=== PATIENT | male | born 1955 | race Caucasian/White ===

== ENCOUNTER → 2020-11-26 | Outpatient (CLI) | payer MEDICARE ==
--- NOTE | 2020-11-26 08:29 | US ---
EXAMINATION TYPE: US duplex aorta DATE OF EXAM: 11/26/2020 COMPARISON: NONE CLINICAL HISTORY: Z13.6 Encounter for screening for cardiovascular disorders. order states screening, no symptoms EXAM MEASUREMENTS: Abdominal Aorta: Proximal: 2.6 x 2.2cm Mid: 2.0 x 2.0cm Distal: 1.7 x 2.0cm Bifurcation: rt = 1.1cm lt = 1.1cm Atherosclerotic changes distally Grayscale, color Doppler, spectral Doppler imaging performed. IMPRESSION: No evident abdominal aortic aneurysm.
--- NOTE | 2020-11-26 08:31 | US ---
EXAMINATION TYPE: US carotid duplex BILAT DATE OF EXAM: 11/26/2020 COMPARISON: NONE CLINICAL HISTORY: R01.1 Murmur. known murmur, no h/o stroke, no symptoms EXAM MEASUREMENTS: RIGHT: Peak Systolic Velocity (PSV) cm/sec ----- Right CCA: 70.1 ----- Right ICA: 102.6 ----- Right ECA: 128.5 ICA/CCA ratio: 1.5 RIGHT: End Diastole cm/sec ----- Right CCA: 22.9 ----- Right ICA: 36.6 ----- Right ECA: 26.3 LEFT: Peak Systolic Velocity (PSV) cm/sec ----- Left CCA: 80.5 ----- Left ICA: 93.9 ----- Left ECA: 126.4 ICA/CCA ratio: 1.2 LEFT: End Diastole cm/sec ----- Left CCA: 24.7 ----- Left ICA: 42.4 ----- Left ECA: 28.0 VERTEBRALS (direction of flow): Right Vertebral: Antegrade Left Vertebral: Antegrade Rhythm: Normal Heterogeneous plaque seen at left BULB/ICA, with no significant stenosis noted bilaterally. Grayscale, color Doppler, spectral Doppler imaging performed. Waveform analysis does not show signifi cant stenosis of the proximal internal carotid arteries. IMPRESSION: No hemodynamic significant stenosis of the proximal internal carotid arteries by Doppler criteria, an indirect measurement of carotid stenosis Criteria for Assigning % of Stenosis / Diameter reduction (Estimation based on the indirect measurements of the internal carotid artery velocities (ICA PSV). 1. Normal (no stenosis)=ICA PSV < 125 cm/s: ratio < 2.0: ICA EDV<40 cm/s. 2. Less than 50% stenosis=ICA PSV < 125 cm/s: ratio < 2.0: ICA EDV<40 cm/s. 3. 50 to 69% stenosis=ICA PSV of 125 to 230 cm/s: ration 2.0 ? 4.0: ICA EDV 40-100 cm/s. 4. Greater than 70% stenosis to near occlusion= ICA PSV > 230 cm/s: ratio > 4.0: ICA EDV > 100 cm/s. 5. Near occlusion= ICA PSV velocities may be low or undetectable: variable ratio and ICA EDV. 6. Total occlusion=unable to detect flow.
--- NOTE | 2020-11-26 12:00 | ECHOF ---
Referral Reason:R01.1 Murmur Z13.6 encounter for screening..... MEASUREMENTS -------- HEIGHT: 182.9 cm WEIGHT: 131.1 kg BP: RVIDd: 3.1 cm (< 3.3) IVSd: 1.3 cm (0.6 - 1.1) LVIDd: 5.2 cm (3.9 - 5.3) LVPWd: 1.5 cm (0.6 - 1.1) IVSs: 1.7 cm LVIDs: 4.0 cm LVPWs: 1.5 cm LAESV Index (A-L): 26.41 ml/m Ao Diam: 3.2 cm (2.0 - 3.7) AV Cusp: 1.2 cm (1.5 - 2.6) MV EXCURSION: 23.586 mm (> 18.000) MV EF SLOPE: 96 mm/s (70 - 150) EPSS: 0.5 cm AV maxP.46 mmHg AV maxP.46 mmHg AV meanP.54 mmHg FINDINGS -------- Sinus rhythm. This was a technically good study. The left ventricular size is normal. There is mild concentric left ventricular hypertrophy. Overa ll left ventricular systolic function is mild-moderately impaired with, an EF between 40 - 45 %. The right ventricle is normal in size. Normal LA size by volume 22+/-6 ml/m2. The right atrial size is normal. There is moderate aortic stenosis present. Peak/mean gradient across the Aortic Valve is 46.46mmHg / 23.54mmHg. Can't exclude Bicuspid valve vs fused cusp. Mild mitral regurgitation is present. Mild tricuspid regurgitation present. Right ventricular systolic pressure is normal at < 35 mmHg. There is no pulmonic regurgitation present. The aortic root size is normal. There is no pericardial effusion. CONCLUSIONS -------- 1. The left ventricular size is normal. 2. There is mild concentric left ventricular hypertrophy. 3. Overall left ventricular systolic function is mild-moderately impaired with, an EF between 40 - 45 %. 4. The right ventricle is normal in size. 5. Normal LA size by volume 22+/-6 ml/m2. 6. The right atrial size is normal. 7. There is moderate aortic stenosis present. 8. Peak/mean gradient across the Aortic Valve is 46.46mmHg / 23.54mmHg. 9. Can't exclude Bicuspid valve vs fused cusp. 10. Mild mitral regurgitation is present. 11. Mild tricuspid regurgitation present. 12. The aortic root size is normal. 13. There is no pericardial effusion. FUR BLENDER: Iesha Boss RDCS
== END | disposition home or self-care (01) ==
LOC: RADUSWWP 06:54
PROVIDERS: ATTEND Family Medicine
DX: Z13.6 Encounter for screening for cardiovascular disorders (principal); I08.1 Rheumatic disorders of both mitral and tricuspid valves; R01.1 Cardiac murmur, unspecified
CPT/HCPCS: 93306; 93880; 93979

== ENCOUNTER 2020-12-06 07:55 | Day surgery (SDC) | payer MEDICARE ==
[2020-12-03 09:25] VITALS: BMI 27.2
[2020-12-06 08:15] VITALS: TEMP 97.8
[2020-12-06] MEDS ORDERED: SODIUM CHLORIDE 0.9% 500 ML 500 ML IV ONE (08:15)
[2020-12-06] MEDS ORDERED: BENZOCAINE SPRAY 1 CAN MUCOUS MEM ONE (08:59)
[2020-12-06] MEDS ORDERED: fentaNYL (PF) 50 MCG/ML 2 ML AMP IV ONE (09:08)
[2020-12-06] MEDS ORDERED: MIDAZOLAM 2 MG/2 ML VIAL IV ONE (09:08)
[2020-12-06] MEDS ORDERED: SODIUM CHLORIDE 0.9% 1,000 ML IV SCH (09:30)
[2020-12-06 10:18] VITALS: BP 148/81; PULSE 70
[2020-12-06 10:19] VITALS: RESP 18
--- NOTE | 2020-12-06 11:07 | ECHOT ---
TRANSESOPHAGEAL ECHOCARDIOGRAM INDICATION: Evaluation of aortic valve and left ventricular systolic function. PROCEDURE: After explaining the procedure to the patient, its risks and the complications, his blood pressure, heart rate, O2 saturation were monitored. The throat was sprayed with Cetacaine. He received 2 mg intravenous Versed and 50 mcg intravenous fentanyl. Images were obtained. Following that, the probe was removed. There was no immediate complication. FINDINGS: Left atrial size is normal. Left atrial appendage is normal. Left ventricular size is normal. The ejection fraction of 50% to 55%. The aortic valve is a tricuspid valve with a planimetry valve area about 2 cm2. The mitral valve and tricuspid valve are normal. Descending thoracic aorta appears to be normal. No pericardial effusion was noted. Contrast bubble study revealed evidence of [id number] shunting through a patent foramen ovale. Doppler pulse wave and color Doppler obtained and revealed mild mitral and tricuspid regurgitation with [id number] shunting through a patent foramen ovale. CONCLUSION: 1. Normal left ventricular size with borderline normal left ventricular systolic function. 2. Tricuspid aortic valve with preserved opening. No evidence of aortic regurgitation. 3. Mild mitral and tricuspid regurgitation. 4. Patent foramen ovale with [id number] shunting with contrast bubble study. 5. No pericardial effusion. MMODL / IJN: [id number] /
[2020-12-06] MEDS ORDERED: amLODIPine 5 MG TAB PO SCH (21:00)
[2020-12-06] MEDS ORDERED: METOPROLOL TARTRATE 25 MG TAB PO SCH (21:00)
[2020-12-06] MEDS ORDERED: lisinopriL 10 MG TAB PO SCH (21:00)
[2020-12-06] MEDS ORDERED: cloNIDine HCL 0.1 MG TAB PO SCH (21:00)
[2020-12-07] MEDS ORDERED: LOSARTAN 50 MG TAB PO SCH (09:00)
== END 2020-12-06 10:32 | disposition home or self-care (01) ==
LOC: CATHCVL 07:55
PROVIDERS: ATTEND Internal Medicine Interventional Cardiology
DX: I08.1 Rheumatic disorders of both mitral and tricuspid valves (principal); Q21.1 Atrial septal defect; I10 Essential (primary) hypertension; I42.8 Other cardiomyopathies; Z20.822 Contact with and (suspected) exposure to COVID-19; Q23.1 Congenital insufficiency of aortic valve; Z82.49 Family history of ischemic heart disease and other diseases of the circulatory system; Z87.891 Personal history of nicotine dependence; Z79.899 Other long term (current) drug therapy
CPT/HCPCS: 93312; 93320; 93325; 87635; J2250; J3010

== ENCOUNTER 2021-01-21 07:18 | Day surgery (SDC) | payer MEDICARE ==
[2021-01-20 09:08] VITALS: BMI 27.1
[~2021-01-21 07:18] MED LIST: ALPRAZolam 0.25 MG TAB PO PRN; ALPRAZolam 0.5 MG TAB PO PRN; ASPIRIN 325 MG TAB PO STA; ATORVASTATIN 80 MG TAB PO STA; NITROGLYCERIN SL TABS 0.4 MG TAB SUBLINGUAL PRN; SODIUM CHLORIDE 0.9% 1,000 ML in EMPTY BAG 1 BAG IV ONE
[2021-01-21] MEDS ORDERED: SODIUM CHLORIDE 0.9% 1,000 ML IV ONE (07:32)
[2021-01-21 08:13] LABS: Basophils % (A) 1 %; Eosinophils # (A) 0.1 k/uL (0-0.7); Eosinophils % (A) 2 %; HCT 47.2 % (39.0-53.0); HGB 15.9 gm/dL (13.0-17.5); Lymphocytes # (A) 1.4 k/uL (1.0-4.8); Lymphocytes % (A) 22 %; MCH 31.4 pg (25.0-35.0); MCHC 33.6 g/dL (31.0-37.0); MCV 93.5 fL (80.0-100.0); Mean Platelet Volume 7.7; Monocytes # (A) 0.5 k/uL (0-1.0); Monocytes % (A) 8 %; Neutrophils # (A) 4.1 k/uL (1.3-7.7); Neutrophils % (A) 66 %; Platelet Count 220 k/uL (150-450); RBC 5.05 m/uL (4.30-5.90); RDW 13.2 % (11.5-15.5); WBC 6.2 k/uL (3.8-10.6)
[2021-01-21 08:21] LABS: African American GFR (CKD) >90 (>60 ml/min/1.73 sqM); Anion Gap 6 mmol/L; Blood Urea Nitrogen 19 mg/dL (9-20); Calcium 9.3 mg/dL (8.4-10.2); Carbon Dioxide 28 mmol/L (22-30); Chloride 111 mmol/L (98-107); Glucose 109 mg/dL (74-99); Non-African American GFR(CKD) >90 (>60 ml/min/1.73 sqM); Potassium 4.3 mmol/L (3.5-5.1); Sodium 145 mmol/L (137-145)
[2021-01-21] MEDS ORDERED: VERAPAMIL 2.5 MG/ML 2 ML AMP ONE (09:01)
[2021-01-21] MEDS ORDERED: LIDOCAINE 1% INJ 10MG/ML (20 ML MDV) ONE (09:01)
[2021-01-21] MEDS ORDERED: fentaNYL (PF) 50 MCG/ML 2 ML AMP ONE (09:07)
[2021-01-21] MEDS ORDERED: HEPARIN SODIUM 1,000 UN/ML (10ML VL) ONE (09:07)
[2021-01-21] MEDS ORDERED: fentaNYL (PF) 50 MCG/ML 2 ML AMP IV ONE (09:20)
[2021-01-21] MEDS ORDERED: LIDOCAINE 1% INJ 10MG/ML (20 ML MDV) SQ ONE (09:26)
[2021-01-21] MEDS ORDERED: MIDAZOLAM 2 MG/2 ML VIAL IV ONE (09:27)
[2021-01-21] MEDS ORDERED: VERAPAMIL SYRINGE (5 MG/10 ML) INTRAARTER ONE (09:28)
[2021-01-21] MEDS: HEPARIN SODIUM 1,000 UN/ML (10ML VL) IV ONE ×3 (09:33→09:51)
[2021-01-21] MEDS ORDERED: CLOPIDOGREL 75 MG TAB ONE (09:43)
[2021-01-21] MEDS ORDERED: CLOPIDOGREL 75 MG TAB PO ONE (09:52)
[2021-01-21] MEDS ORDERED: NITROGLYCERIN 1000MCG/10ML SYRINGE INTRACORON ONE (10:03)
[2021-01-21] MEDS ORDERED: IOPAMIDOL-370 125ML BTL INJ ONE ×2 (10:04)
[2021-01-21] MEDS ORDERED: IOPAMIDOL-370 100ML BTL INJ ONE (10:32)
[2021-01-21] MEDS ORDERED: ATROPINE SULFATE 0.1 MG/ML 10ML SYRINGE IV PRN (10:48)
[2021-01-21] MEDS ORDERED: ZOLPIDEM 5 MG TAB PO PRN (10:48)
[2021-01-21] MEDS ORDERED: NITROGLYCERIN SL TABS 0.4 MG TAB SUBLINGUAL PRN (10:48)
[2021-01-21] MEDS ORDERED: RX INFO: IV CONTRAST WAS GIVEN 1 EACH MISC MISCELLANE PRN (10:48)
[2021-01-21] MEDS ORDERED: MAG HYDROX/AL HYDROX/SIMETH 30 ML CUP PO PRN (10:48)
[2021-01-21] MEDS ORDERED: SODIUM CHLORIDE 0.9% 1,000 ML IV SCH (11:00)
--- NOTE | 2021-01-21 11:29 | CC ---
CARDIAC CATHETERIZATION REPORT Mr. Ovalles is a 65-year-old male with known history of hypertension, chronic tobacco use. Family history of premature coronary artery disease who recently had an abnormal myocardial perfusion imaging. He had a history of cardiomyopathy. In view of that, recommendation was made regarding cardiac catheterization. The procedure as well as the risks and the complications were discussed with the patient who is in full understanding and agreement. PROCEDURE: Patient was brought to cardiac cath technician in a fasting semisedated state after receiving fentanyl and Benadryl and achieving moderate conscious sedated state. Using Xylocaine anesthesia and Seldinger technique, a 6-Croatian sheath was introduced in the right radial artery. Selective right and left coronary angiography performed using 5-Croatian 3.5 bend right Phoenix and a 4 bend left Hpoenix catheter. Multiple views of the coronary artery including hemiaxial views were obtained. The left Phoenix was used to cross the aortic valve and left ventricular end-diastolic pressure was calculated. Following that, catheter was removed and images were reviewed. FINDINGS: FLUOROSCOPY: There was calcification involving the left anterior descending artery. LEFT MAIN: This is a short size vessel, bifurcating into left circumflex, left anterior descending artery, left main coronary artery has no evidence of high-grade stenosis. LEFT ANTERIOR DESCENDING ARTERY: This vessel gives rise to a large proximal diagonal branch that has about 40% plaque proximally at the takeoff of the first septal crop supervisor. The vessel is totally occluded with minimal antegrade flow. LEFT CIRCUMFLEX: This is a dominant vessel large in caliber giving rise to a proximal obtuse marginal branch distally bifurcating into PDA and posterolateral segment and branches. The left circumflex as well as branches have no evidence of obstructive coronary artery disease. RIGHT CORONARY ARTERY: This is a small, nondominant vessel that has no evidence of high-grade stenosis. LEFT VENTRICULOGRAM: The left ventriculogram was not performed. HEMODYNAMICS: There was no gradient across the aortic valve. The left ventricular end-diastolic pressure was 10-14 mmHg. COLLATERALS : There are collaterals from the left coronary system toward the LAD. CONCLUSION: 1. 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 2. Left dominance. RECOMMENDATIONS: In view of findings and anatomy, I recommend proceeding with angioplasty and stenting of the LAD. The procedure as well as the risks and the complications were discussed with the patient who is in full understanding and agreement. MMODL / IJN: [id number] /
--- NOTE | 2021-01-21 11:32 | PTCA ---
PERCUTANEOUSTRANS CORORONARY ANGIOGRAPHY Mrs Ovalles is a 55-year-old male with known history of hypertension, chronic tobacco use and a family history of premature coronary artery disease and evidence of cardiomyopathy who had an abnormal myocardial perfusion imaging. In view of that, he underwent cardiac catheterization, was found to have chronically occluded proximal mid segment of the LAD. In view of that, recommendation made regarding angioplasty and stenting. The procedure as well as the risks and the complications were discussed with the patient who is in full understanding and agreement. PROCEDURE: A 6-Niuean EBU 4 guiding catheter was introduced in the system. After cannulating the left main, a 0.014 balanced medium weight J-wire medium J-wire with a SuperCross straight microcatheter was advanced. The BMW wire would not advance across the total occlusion. That wire was removed and a 0.014 Whisper J-wire was advanced and the total occlusion was crossed. Subsequently the wire was exchanged through the microcatheter to the BMW J and after that, the microcatheter was removed. Subsequently, a 1.5 x 12 mm Trek balloon was advanced and multiple inflations at 10 atmospheres were done. Following that, the balloon was removed and the intravascular ultrasound [place] was advanced and images were obtained. Following that, the ultrasound was removed and a 2.75 x 38 mm Xience Ese stent was deployed. It was dilated at 16 atmospheres. Following that, the balloon was was removed and a 3.0 x 28 mm Xience Ese stent was deployed proximal to the first one and was dilated at 16 atmospheres. Following that, the intravascular ultrasound catheter was introduced and images were obtained. Following that, a 3.25 x 15 mm NC Trek balloon was advanced and multiple inflations throughout the stented segment were done at maximum of 12 atmospheres. After the last inflation, after appropriate wait, the balloon and the guidewire were withdrawn back in the guiding catheter. Images were obtained and repeated. Those images reveal stable successful stenting. At that point, the guiding catheter, the balloon and the guidewire removed. The sheath was removed. Hemostasis was obtained with deployment of a TR band. There was no immediate complication. Patient was returned to his room in stable condition. Of note, the patient received 8000 units of intravenous heparin, his ACT was followed. He has also received intra-arterial verapamil. He had no chest discomfort or EKG changes with the inflations. RESULTS: Successful stenting of a long segment of the proximal and mid LAD with reduction of stenosis from 100% to 0%. RECOMMENDATIONS: Patient will be continued on aspirin, Plavix, beta antonino. The importance of dual antiplatelet treatment and smoking cessation were discussed with the patient and his family and they are in full understanding and agreement. Duration of sedation: 65 minutes. MARLENI / LINDA: [id number] /
--- NOTE | 2021-01-21 11:38 | LTR ---
DATE OF SERVICE: 01/21/[address] Dyer: I had the pleasure of performing cardiac catheterization and angioplasty and stenting on Mr. Ovalles at [facility] on January 21 and a full copy of procedure note will be forwarded to you. In brief, he was found to have a chronically occluded left anterior descending artery in a long segment and underwent recannulization of that vessel with stenting. I am hopeful that this procedure will stabilize his status. Thank you again for allowing me to participate in his care. Please feel free to call for any questions. Sincerely, MARLENI / IJN: [id number] /
[2021-01-21] MEDS: cloNIDine HCL 0.1 MG TAB PO SCH (20:46)
[2021-01-21] MEDS ORDERED: amLODIPine 5 MG TAB PO SCH (21:00)
[2021-01-21] MEDS ORDERED: ATORVASTATIN 80 MG TAB PO SCH (21:00)
[2021-01-22] MEDS: METOPROLOL TARTRATE 25 MG TAB PO SCH ×2 (01:36→09:29)
[2021-01-22 07:01] LABS: African American GFR (CKD) >90 (>60 ml/min/1.73 sqM); Anion Gap 5 mmol/L; Blood Urea Nitrogen 19 mg/dL (9-20); Calcium 9.2 mg/dL (8.4-10.2); Carbon Dioxide 29 mmol/L (22-30); Chloride 108 mmol/L (98-107); Glucose 94 mg/dL (74-99); Non-African American GFR(CKD) 82 (>60 ml/min/1.73 sqM); Potassium 4.3 mmol/L (3.5-5.1); Sodium 142 mmol/L (137-145)
[2021-01-22 07:05] VITALS: BP 151/93; PULSE 56; RESP 18; TEMP 97.7
[2021-01-22] MEDS ORDERED: CHOLECALCIFEROL 25 MCG (1000 IU) TABLET PO SCH (09:00)
[2021-01-22] MEDS ORDERED: ASPIRIN 81 MG PO SCH (09:00)
[2021-01-22] MEDS ORDERED: CLOPIDOGREL 75 MG TAB PO SCH (09:00)
[2021-01-22] MEDS ORDERED: LOSARTAN 50 MG TAB PO SCH (09:00)
--- NOTE | 2021-01-22 09:14 | PN ---
PROGRESS NOTE Mr. Ovalles is a 65-year-old male who presented with abnormal myocardial perfusion imaging, underwent cardiac catheterization and was found to have chronic occluded right LAD, underwent stenting of that vessel. He is doing well this morning. He denies any chest pain, his breathing is stable. He denies any dizziness or palpitation. He continues to be on aspirin once a day, amlodipine 5 mg daily, Lipitor 80 mg daily, clonidine 0.1 mg twice a day, Plavix 75 mg daily, metoprolol tartrate 25 mg twice a day and losartan 100 mg daily. PHYSICAL EXAMINATION: Blood pressure running in the 120s to 150s with the heart rate in the 60s. LUNGS: Clear. HEART: Regular rate and rhythm S1, S2. No S3. No rub. ABDOMEN: Soft and nontender. EXTREMITIES: No edema. Right radial pulse intact. EKG showed no acute changes. LAB DATA: Lab data revealed BUN and creatinine 19 and 0.97, potassium 4.3. IMPRESSION: 1. 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 2. Hypertension. 3. Chronic tobacco use. 4. Hyperlipidemia. RECOMMENDATION: Patient will be discharged home today and followed as an outpatient. I discussed with him again the importance of smoking cessation. MMODL / IJN: [id number] /
[2021-01-22] MEDS: cloNIDine HCL 0.1 MG TAB PO SCH (09:29)
[2021-01-22 12:30] LABS: Chol/HDL Ratio 5.19; Cholesterol 161 mg/dL (0-200)
== END 2021-01-22 11:57 | disposition home or self-care (01) ==
LOC: CATHCVL 07:18 → 6NMEDSUR 10:30 → CATHCVL 01-22 11:57
PROVIDERS: ATTEND Internal Medicine Interventional Cardiology
DX: I25.10 Atherosclerotic heart disease of native coronary artery without angina pectoris (principal); I25.84 Coronary atherosclerosis due to calcified coronary lesion; I25.82 Chronic total occlusion of coronary artery; I42.8 Other cardiomyopathies; R94.39 Abnormal result of other cardiovascular function study; I10 Essential (primary) hypertension; Z20.822 Contact with and (suspected) exposure to COVID-19; F17.210 Nicotine dependence, cigarettes, uncomplicated; Z82.49 Family history of ischemic heart disease and other diseases of the circulatory system; Z79.82 Long term (current) use of aspirin; Z79.899 Other long term (current) drug therapy
CPT/HCPCS: 93458; 80061; 80048 ×2; 85025; 87635; C9600; C1769 ×3; C1887 ×2; C1894; C1725 ×2; C1753; C1874; J2250; J2001; J3010; J1644; Q9967 ×2

== ENCOUNTER 2022-04-07 18:35 | Emergency (ER) | payer MEDICARE ==
[2022-04-07 19:28] VITALS: BP 195/100; PULSE 65; RESP 16; TEMP 98.6
[2022-04-07] MEDS ORDERED: DIPH,PERTUS(ACELL)TETVAC-LF 0.5 ML VIAL IM ONE (19:50)
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
== END 2022-04-07 20:15 | disposition home or self-care (01) ==
LOC: EC 18:35
DX: T20.20XA Burn of second degree of head, face, and neck, unspecified site, initial encounter (principal); T65.891A Toxic effect of other specified substances, accidental (unintentional), initial encounter; T31.0 Burns involving less than 10% of body surface; I10 Essential (primary) hypertension; F17.200 Nicotine dependence, unspecified, uncomplicated; Z23 Encounter for immunization; Z79.899 Other long term (current) drug therapy; Y92.89 Other specified places as the place of occurrence of the external cause
CPT/HCPCS: 90471; 90715; 99282